=== PATIENT | male | born 1975 ===

== ENCOUNTER 2021-05-25 07:25 | Outpatient (CLI) | payer OTHER ==
--- NOTE | 2021-05-25 10:56 | Magnetic Resonance Report ---
MRI left lower extremity joint WITHOUT CONTRAST INDICATION / CLINICAL INFORMATION: H/O ACHILLES TENDON RUPTURE. TECHNIQUE: Multiplanar, multisequence MR images were obtained. No contrast used. COMPARISON: None available. FINDINGS: ACHILLES TENDON: There is a complete tear of the the Achilles tendon located at the myotendinous junc tion approximately 5 cm proximal to the calcaneus insertion.The remainder of the Achilles tendon is t hickened with increased signal. PLANTAR FASCIA: No significant abnormality. POSTERIOR TIBIAL / FLEXOR TENDONS: No significant abnormality. PERONEAL TENDONS: No significant abnormality. ANTERIOR TIBIAL / EXTENSOR TENDONS: No significant abnormality. Ligaments:The medial and lateral ankle ligaments are grossly intact. BONES / OTHER JOINTS: No significant bone marrow edema. No fracture. No osseous lesion. Well-corticat ed ossific bodies at the distal tip of the fibula likely present sequela of old avulsive injury. SUBCUTANEOUS SOFT TISSUES: There is edema in the soft tissues around the Achilles tendon. ADDITIONAL FINDINGS: None. IMPRESSION: 1. Complete tear of the Achilles tendon at the myotendinous junction as described above. Diffuse Achi lles tendinopathy. 2. Sequela of remote avulsive injury at the distal fibular tip. Report dictated by: Reymundo Rodríguez MD Report dictated on: 05/25/2021 8:48 AM I have reviewed the images, agree with this report, and edited this report as needed. Signer Name: James Aadms MD Signed: 05/25/2021 10:51 AM Workstation Name: [id number]
== END 2021-05-25 07:26 | disposition home or self-care (01) ==
LOC: EEVIPCON 07:25 → MRI 07:25
PROVIDERS: ATTEND Specialist
DX: S86.022A Laceration of left Achilles tendon, initial encounter (principal); S72.492S Other fracture of lower end of left femur, sequela; R60.0 Localized edema; X58.XXXA Exposure to other specified factors, initial encounter; Y93.89 Activity, other specified; Y92.89 Other specified places as the place of occurrence of the external cause; Y99.8 Other external cause status; X58.XXXS Exposure to other specified factors, sequela
CPT/HCPCS: 73721